=== PATIENT | female | born 1940 | race Caucasian/White ===

== ENCOUNTER → 2016-11-08 | Outpatient (CLI) | payer OTHER ==
[~2016-11-08] MED LIST: AMLO-110 PO; ASPEC81 PO; ATEN-173 PO; CHOL100010 PO; FRRG PO; HYDR-4079 PO; HYDROCHLOROTHIAZIDE PO; LEVOTHYROXINE PO; LISI40TA PO; ONDA4TAB46 PO; SPIRONOLACTONE PO; STLS PO
--- NOTE | 2016-11-08 14:55 | DIAGNOSTIC IMAGING REPORT ---
LEFT SHOULDER 3 VIEWS CLINICAL HISTORY: Left shoulder pain. FINDINGS: 3 views of left shoulder are obtained. No prior studies are available for comparison at the time of dictation. The skeletal structures are osteopenic. No fracture or dislocation is identified. Productive degenerative change is seen at the acromioclavicular joint. The glenohumeral articulation is preserved. The overlying soft tissues are within normal limits. Partially imaged left lung parenchyma appears clear. IMPRESSION: Osteopenia and mild degenerative change as above. No acute bony abnormality is identified. Electronically signed by: Kyrie Monique M.D. 11/08/2016 2:53 PM Dictated Date/Time: 11/08/2016 2:52 PM
--- NOTE | 2016-11-08 14:55 | DIAGNOSTIC IMAGING REPORT ---
CERVICAL SPINE 4 OR 5 VIEWS CLINICAL HISTORY: Left shoulder pain COMPARISON STUDY: No previous studies for comparison. FINDINGS: The prevertebral soft tissues are normal. No fractures or subluxations are visualized. There are minor multilevel degenerative changes. No destructive lesions are visualized. IMPRESSION: Minor multilevel degenerative change. No fractures or subluxations identified. Electronically signed by: Benny Gale M.D. 11/08/2016 2:54 PM Dictated Date/Time: 11/08/2016 2:53 PM
== END | disposition home or self-care (01) ==
LOC: C.RDSM 13:10
PROVIDERS: ATTEND Internal Medicine
DX: M25.512 Pain in left shoulder (principal); M85.80 Other specified disorders of bone density and structure, unspecified site

== ENCOUNTER → 2017-01-28 | Outpatient (CLI) | payer OTHER | END | disposition home or self-care (01) | LOC: C.RDSM 15:10 | PROVIDERS: ATTEND Physical Medicine & Rehabilitation Sports Medicine | DX: M25.561 Pain in right knee (principal) ==

== ENCOUNTER 2018-12-16 05:00 | Inpatient (IN) ==
--- NOTE | 2018-11-25 10:01 | PAT Medication Instructions ---
Medication Instructions Date of Service November 25, 2018 Home Medications apple cider vinegar 1 dose PO DAILY ascorbic acid (vitamin C) 1 g PO DAILY cholecalciferol (vitamin D3) 1,000 unit PO DAILY gabapentin 800 mg PO BID levothyroxine 125 mcg PO QA lisinopril 20 mg PO QAM loratadine 10 mg PO QPM metoprolol tartrate 25 mg PO BID naproxen sodium [Aleve] 2 tab PO BID NEEDED phentermine 15 mg PO QAM ranitidine HCl 150 mg PO HS NEEDED spironolacton-hydrochlorothiaz 1 tab PO QPM topiramate 25 mg PO QPM ASK your surgeon for instructions naproxen sodium [Aleve] 2 tab PO BID NEEDED STOP taking 2 weeks before surgery phentermine 15 mg PO QAM (STOP TAKING 1 WEEK BEFORE SURGERY) DO NOT take the morning of surgery apple cider vinegar 1 dose PO DAILY ascorbic acid (vitamin C) 1 g PO DAILY cholecalciferol (vitamin D3) 1,000 unit PO DAILY lisinopril 20 mg PO QAM Take morning of surgery With a small sip of water, OTHERWISE NOTHING TO EAT OR DRINK AFTER MIDNIGHT: gabapentin 800 mg PO BID levothyroxine 125 mcg PO QA metoprolol tartrate 25 mg PO BID Take evening before surgery gabapentin 800 mg PO BID loratadine 10 mg PO QPM metoprolol tartrate 25 mg PO BID ranitidine HCl 150 mg PO HS NEEDED spironolacton-hydrochlorothiaz 1 tab PO QPM topiramate 25 mg PO QPM Other Notes If you have any questions please call us at [phone] or [phone] or [phone] or [phone]
--- NOTE | 2018-11-25 11:17 | Anesthesiology Consultation ---
Date of Service November 25, 2018 Assessment & Plan (1) Encounter for pre-operative examination: Chart Review Chart Review: Acceptable Risk for Surgery and Patient seen in Pre Admission Testing Consults Requested medical (Dr. Sierra (12/05)) Patient was seen by PCP on 12/05. Per PCP note, patient is "All clear for surgery". Teaching & Discussion Pre-Anesthesia Teaching/Discussion Notes: Instructed NPO after midnight before surgery, except medications with 15 cc of water. Medication instructions provided according to the PAT guidelines. History Surgery Operation Date: 12/16/18 07:00 Proposed Procedures p Right Total Knee Arthroplasty - Brando Chu MD Height/Weight Height: 5 ft 5 in Weight: 101.3 kg Allergies Allergy/AdvReac Type Severity Reaction Status Date / Time hylan G-F 20 [From Synvisc] Allergy Verified 11/19/18 13:35 morphine AdvReac SEVERE Verified 11/19/18 13:36 VOMITING FOR SEVERAL DAYS Medications Home Medications Medication Instructions Recorded Confirmed Last Taken apple cider vinegar 1 dose PO DAILY 09/26/18 11/19/18 Unknown cholecalciferol (vitamin D3) 1,000 unit PO DAILY 09/26/18 11/19/18 Unknown [Vitamin D3] gabapentin 800 mg PO HS 09/26/18 12/08/18 Unknown levothyroxine 125 mcg PO QAM 09/26/18 11/19/18 Unknown lisinopril 20 mg PO QAM 09/26/18 11/19/18 Unknown loratadine 10 mg PO QPM 09/26/18 11/19/18 Unknown metoprolol tartrate 25 mg PO BID 09/26/18 11/19/18 Unknown phentermine 15 mg PO QAM 09/26/18 11/19/18 Unknown ranitidine HCl 150 mg PO HS PRN 09/26/18 11/19/18 Unknown topiramate 25 mg PO QPM 09/26/18 11/19/18 Unknown ascorbic acid (vitamin C) 500 mg PO DAILY 12/08/18 12/08/18 Unknown furosemide 20 mg PO DAILY PRN 12/08/18 12/08/18 Unknown hydrochlorothiazide 25 mg PO DAILY 12/08/18 12/08/18 Unknown spironolactone 25 mg PO DAILY 12/08/18 12/08/18 Unknown Past Medical History Medical History Benign paroxysmal positional vertigo Chronic back pain Heart murmur Hypertension Hypothyroidism Obesity Osteoarthritis Pernicious anemia Polymyalgia rheumatica Sciatic neuropathy Thyroid nodule Past Surgical History Surgical History History of breast biopsy History of cataract surgery Bilateral History of colonoscopy History of tonsillectomy History of total knee replacement LT Past Anesthesia History No Hx of Anesthesia Complications and No Family Hx of Anesthesia Complications History of PONV No (ONLY WHEN ON MORPHINE DRIP) Motion Sickness Screening History of Motion Sickness: No Social History Smoking Status: Former smoker tobacco type: cigarettes Smoking cigarettes per day: QUIT 30 YEARS AGO. SMOKED X 10 YEARS. Do You Dip or Chew Tobacco: No Hx Alcohol Use: No Alcohol Intake Frequency Comment: 0 Hx Substance Use: No substance use type: does not use Exercise / Class Metabolic Activity II 4-5 Yardwork/Stairs/Walk up hill (ABLE TO CLIMB FOS. DENIES CP OR SOB. ) Review of Systems Patient denies chest pain, shortness of breath, dyspnea on exertion, cough, wheezing, palpitations. +joint pain (knee) +acid reflux (mostly controlled by her medications) Physical Exam Vital Signs BP: 144/82 P: 60 R: 16 T: 97.0 SPO2: 97% on RA Constitutional + obese ENMT Thyromental Distance: > or= 3.5 Finger Breadths (3.5) Mallampati Class: II Neck normal visual inspection and trachea midline; neck extension not limited Respiratory normal respiratory effort Auscultation: lungs clear to auscultation bilaterally Cardiovascular Rate/Rhythm: regular rate and regular rhythm Heart Sounds: no murmur Vessels: no carotid bruit Neurologic moves all extremities Psychiatric Orientation: alert and oriented x 3 Testing Electrocardiogram Date: 11/25/18 Findings: + NSR @ (61) and + no change from (08/30/10) Chest X-Ray Date: 11/25/18 FINDINGS: The heart is at the upper limits of normal in size. There is a hazy opacity at the left lung base. Although nonspecific, the findings favor a summation with a cardiophrenic angle fat pad. Right paramediastinal soft tissues are the upper limits of normal in thickness. There is no lobar consolidation. There is no failure. There are no pleural effusions. Degenerative changes are present within the dorsal spine. IMPRESSION: 1. Nonspecific left basilar opacity, statistically representing a summation with a prominent cardiophrenic angle fat pad 2. No evidence of lobar consolidation. No evidence of failure. Laboratory Results 11/25/18 10:53 11/25/18 10:53 Blood Type O Positive 11/25/18 10:53 Antibody Screen NEGATIVE 11/25/18 10:53 PT 10.2 Seconds (9.0-12.0) 11/25/18 10:53 INR 1.0 (0.9-1.1) 11/25/18 10:53 APTT 26.3 Seconds (21.0-31.0) 11/25/18 10:53 Dr. Chu's office notified of elevated WBC count. CBC was repeated by PCP on 12/02/18 and WBC was 8.76
[2018-11-25 11:49] LABS: Basophils # (auto) 0.03 K/uL (0-0.2); Basophils % (auto) 0.2 %; Eosinophils % (auto) 0.6 %; Hematocrit (blood only) 38.1 % (37-47); Hemoglobin 12.5 g/dL (12.0-16.0); Immature Granulocytes # (auto) 0.05 K/uL (0.00-0.02); Immature Granulocytes % (auto) 0.3 %; Lymphocytes # (auto) 2.39 K/uL (1.2-3.4); Lymphocytes % (auto) 15.4 %; Mean Corpuscular Hgb Conc 32.8 g/dL (32-36); Mean Corpuscular Volume 89.9 fL (80-100); Mean Platelet Volume 9.8 fL (7.4-10.4); Monocytes # (auto) 0.82 K/uL (0.11-0.59); Monocytes % (auto) 5.3 %; Neutrophils # (auto) 12.17 K/uL (1.4-6.5); Neutrophils % (auto) 78.2 %; Platelet Count 358 K/uL (130-400); RDW Coefficient of Variation 12.6 % (11.5-14.5); RDW Standard Deviation 41.2 fL (36.4-46.3); Red Blood Count 4.24 M/uL (4.2-5.4); White Blood Count 15.56 K/uL (4.8-10.8)
[2018-11-25 11:57] LABS: BUN Creatinine Ratio 22.5 (10-20); Calcium 8.7 mg/dl (8.5-10.1); Creatinine Clr Calc Pharmacy 44.1 ml/min; Est GFR (African American) 47.6; Est GFR (Non-African American) 41.1
[2018-11-25 12:06] LABS: Partial Thromboplastin Time 26.3 Seconds (21.0-31.0); Prothrombin Time 10.2 Seconds (9.0-12.0)
--- NOTE | 2018-11-25 12:06 | XRay Report ---
XR chest Pre-admission PA/Lat CLINICAL HISTORY: Preoperative chest COMPARISON STUDY: No previous studies for comparison. FINDINGS: The heart is at the upper limits of normal in size. There is a hazy opacity at the left jayy g base. Although nonspecific, the findings favor a summation with a cardiophrenic angle fat pad. Righ t paramediastinal soft tissues are the upper limits of normal in thickness. There is no lobar consoli dation. There is no failure. There are no pleural effusions. Degenerative changes are present within the dorsal spine.[ IMPRESSION: 1. Nonspecific left basilar opacity, statistically representing a summation with a prominent cardioph renic angle fat pad 2. No evidence of lobar consolidation. No evidence of failure. Electronically signed by: Benny Gale M.D. 11/25/2018 12:05 PM
--- NOTE | 2018-12-08 13:50 | History & Physical Report ---
Date of Service December 08, 2018 Assessment & Plan (1) Degenerative joint disease of knee, right: Patient is scheduled for an elective right total knee arthroplasty on December 16, [address] Brando Chu. Risks and complications of the procedure were extended the patient and include but are not limited to infection, pain, bleeding, scarring, nerve or blood vessel damage, wound problems, weakness, stiffness, incomplete relief of symptoms, hardware failure, loosening, wear, fracture, blood clots, embolisms, heart attack, stroke and . All questions were answered and informed consent was obtained. She will have preadmission testing which she will obtain a preoperative CBC, BMP, PT/INR, PTT, type and screen, EKG and chest x-ray. She will have preoperative medical clearance by her family physician Dr. Sierra. Postoperative course was discussed. The joint class was discussed in times are provided to her to do that. She was instructed on the usage of the CHG cloths prior to surgery. She is planning on being discharged to her home after surgery with in-home physical therapy and then attending outpatient physical therapy closer to her home. She was given a prescription for a walker for postoperative use. She was instructed and reminded about dental prophylaxis which she already does due to her left total knee arthroplasty. We will use Lovenox 30 mg twice a day 2 weeks postoperatively for DVT prophylaxis. All questions were answered and she knows to call with any further problems, questions or concerns. Present on Admission?: Yes History of Present Illness Chief Complaint: Right knee pain Primary Care Provider: Dr. Carmelo Sierra Patient is a 78-year-old female who is scheduled to have an elective right total knee arthroplasty on December 16, [address] Brando Chu. Her surgery will be performed at the [facility].She is having right knee pain that has progressively worsened over the last couple of months. She has been having issues with her right knee for the past few years. Most of her pain is on the medial aspect of the knee although she also gets pain in the back of her knee. She has significant stiffness after sitting and sometimes pain that radiates down into her ankle especially with driving. She has pain in the knee at night and also her pain is increased with walking. She is decreasing activities of daily living due to pain in her right knee. Aggravating activities include walking, going up and down steps. She occasionally also has pain at rest. Prior treatments include nonsteroidal anti-inflammatory medications, corticosteroid injections and viscose supplementation. She does use a cane to assist with ambulation to prevent from falling. She does have a history of having a successful left total knee arthroplasty and would like to proceed with a right total knee arthroplasty. Allergies Allergy/AdvReac Type Severity Reaction Status Date / Time kaylin Powell-Liam 20 [From Bill.Forward] Allergy Verified 11/19/18 13:35 morphine AdvReac SEVERE Verified 11/19/18 13:36 VOMITING FOR SEVERAL DAYS Home Medications Home Medications Medication Instructions Recorded Confirmed Type apple cider vinegar 1 dose PO DAILY 09/26/18 11/19/18 History cholecalciferol (vitamin D3) 1,000 unit PO DAILY 09/26/18 11/19/18 History [Vitamin D3] gabapentin 800 mg PO HS 09/26/18 12/08/18 History levothyroxine 125 mcg PO QAM 09/26/18 11/19/18 History lisinopril 20 mg PO QAM 09/26/18 11/19/18 History loratadine 10 mg PO QPM 09/26/18 11/19/18 History metoprolol tartrate 25 mg PO BID 09/26/18 11/19/18 History phentermine 15 mg PO QAM 09/26/18 11/19/18 History ranitidine HCl 150 mg PO HS PRN 09/26/18 11/19/18 History topiramate 25 mg PO QPM 09/26/18 11/19/18 History ascorbic acid (vitamin C) 500 mg PO DAILY 12/08/18 12/08/18 History furosemide 20 mg PO DAILY PRN 12/08/18 12/08/18 History hydrochlorothiazide 25 mg PO DAILY 12/08/18 12/08/18 History spironolactone 25 mg PO DAILY 12/08/18 12/08/18 History Past Med/Surg History Medical History Benign paroxysmal positional vertigo Chronic back pain Heart murmur Hypertension Hypothyroidism Obesity Osteoarthritis Pernicious anemia Polymyalgia rheumatica Sciatic neuropathy Thyroid nodule Surgical History History of breast biopsy History of cataract surgery Bilateral History of colonoscopy History of tonsillectomy History of total knee replacement LT Social History Preferred Language: Chinese Communication Ability: Effective Member Service Representative Required: No Beliefs That Will Affect Care: None Current Living Situation: Other Current Living Situation Comment: RESIDES WITH A FRIEND Other Information That Helps Us Care for You: No Feels Safe at Home: Yes Safety Concerns: Feels Safe At This Time Smoking Status: Former smoker Hx Alcohol Use: No Hx Substance Use: No Review of Systems Constitutional: + weight loss; no fever, no chills and no sweats Eyes: no diplopia, no dry eyes and no eye pain Ear, Nose, Mouth, Throat: no ear pain, no tinnitus, no hearing loss, no post nasal drip, no sinus pain/pressure, no snoring, no dental caries, no dental abscess, no loose teeth and no TMJ pain Respiratory: + dyspnea on exertion; no cough, no chest congestion, no dyspnea and no wheezing Cardiovascular: no chest pain, no chest pain at rest, no chest pain with activity, no dyspnea at rest, no palpitations, no lightheadedness, no syncope, no edema and no calf pain Gastrointestinal: no abdominal pain, no belching, no heartburn, no nausea, no vomiting, no constipation and no diarrhea/loose stools Genitourinary (Female): no dysuria, no urinary frequency, no urinary hesitancy, no urinary urgency, no urinary incontinence and no hematuria Musculoskeletal: + back pain, + radicular pain, + joint pain, + swelling, + stiffness and + limited range of motion; no deformity Integumentary: no rash, no sores, no wounds and no dry skin Neurologic: no gait abnormality, no unsteadiness, no seizure-like activity, no dizziness and no headache(s) Psychiatric: no behavioral changes, no depression and no anxiety Hematologic / Lymphatic: no easy bleeding, no easy bruising and no coagulopathy Allergy / Immunological: no GI upset with certain foods, no seasonal rhinorrhea, no dyspnea and no rash Physical Exam Vital Signs (Past 24 Hours): Height: 5 feet 5 inches Weight: 220 pounds Constitutional: WD/WN, vitals as above well developed and + obese; no acute distress Eyes: PERRL, conjunctivae normal, anicteric sclerae EOM intact bilaterally ENMT: external ear and nose normal, oropharynx normal Ears: no hearing impairment Nose: no external nose abnormality Mouth: no dentition abnormality Throat: uvula midline Neck: trachea midline, no thyromegaly normal visual inspection; no neck crepitus Respiratory: normal respiratory effort, lungs clear to auscultation Auscultation: no crackles, no rales, no rhonchi and no wheezes Cardiovascular: Rate/Rhythm: regular rate and regular rhythm Heart Sounds: + murmur Vessels: femoral pulses present and posterior tibial pulses present; no carotid bruit Extremities: normal capillary refill; no calf tenderness and no pedal edema Chest (Breasts): Chest: normal inspection of chest Gastrointestinal (Abdomen): normal bowel sounds, soft, nontender, no hepatosplenomegaly Inspection/Auscultation: abdomen not distended Musculoskeletal: Head/Neck/Chest: normocephalic, head atraumatic and neck supple; full ROM of neck Extremities: strength 5/5 throughout; no muscle atrophy Gait: normal gait (With assistive device) Review of motion right knee 0/10/120 with varus alignment, passive straight leg raise negative, painless movement of her right hip, tenderness with palpation of the medial and posterior medial joint line which reproduces her symptoms. No effusion. Ligamentous exam is stable. Skin: no rashes, warm and dry normal turgor Neurologic: moves all extremities Speech / Cognition: normal speech Psychiatric: A+Ox3, euthymic affect Judgement: good judgement Results & Data Laboratory Results Lab Results 11/25/18 11/25/18 11/25/18 Range/Units 10:53 10:53 10:53 WBC 15.56 H (4.8-10.8) K/uL RBC 4.24 (4.2-5.4) M/uL Hgb 12.5 (12.0-16.0) g/dL Hct 38.1 (37-47) % MCV 89.9 (80-100) fL MCH 29.5 (25-34) pg MCHC 32.8 (32-36) g/dL RDW Std Deviation 41.2 (36.4-46.3) fL RDW Coeff of Albert 12.6 (11.5-14.5) % Plt Count 358 (130-400) K/uL MPV 9.8 (7.4-10.4) fL Immature Gran % (Auto) 0.3 % Neut % (Auto) 78.2 % Lymph % (Auto) 15.4 % [place] % (Auto) 5.3 % Eos % (Auto) 0.6 % Baso % (Auto) 0.2 % Immature Gran # (Auto) 0.05 H (0.00-0.02) K/uL Neut # (Auto) 12.17 H (1.4-6.5) K/uL Lymph # (Auto) 2.39 (1.2-3.4) K/uL [place] # (Auto) 0.82 H (0.11-0.59) K/uL Eos # (Auto) 0.10 (0-0.5) K/uL Baso # (Auto) 0.03 (0-0.2) K/uL PT 10.2 (9.0-12.0) Seconds INR 1.0 (0.9-1.1) APTT 26.3 (21.0-31.0) Seconds PTT Ratio 1.0 Sodium 140 (136-145) mmol/L Potassium 4.0 (3.5-5.1) mmol/L Chloride 106 (98-107) mmol/L Carbon Dioxide 28 (21-32) mmol/L Anion Gap 6.0 (3-11) BUN 28 H (7-18) mg/dl Creatinine 1.26 H (0.6-1.2) mg/dl Est Cr Clr Drug Dosing 44.1 ml/min Est GFR ( Amer) 47.6 Est GFR (Non-Af Amer) 41.1 BUN/Creatinine Ratio 22.5 H (10-20) Glucose 96 (70-99) mg/dl Calcium 8.7 (8.5-10.1) mg/dl Blood Type Antibody Screen 11/25/18 Range/Units 10:53 WBC (4.8-10.8) K/uL RBC (4.2-5.4) M/uL Hgb (12.0-16.0) g/dL Hct (37-47) % MCV (80-100) fL MCH (25-34) pg MCHC (32-36) g/dL RDW Std Deviation (36.4-46.3) fL RDW Coeff of Albert (11.5-14.5) % Plt Count (130-400) K/uL MPV (7.4-10.4) fL Immature Gran % (Auto) % Neut % (Auto) % Lymph % (Auto) % [place] % (Auto) % Eos % (Auto) % Baso % (Auto) % Immature Gran # (Auto) (0.00-0.02) K/uL Neut # (Auto) (1.4-6.5) K/uL Lymph # (Auto) (1.2-3.4) K/uL [place] # (Auto) (0.11-0.59) K/uL Eos # (Auto) (0-0.5) K/uL Baso # (Auto) (0-0.2) K/uL PT (9.0-12.0) Seconds INR (0.9-1.1) APTT (21.0-31.0) Seconds PTT Ratio Sodium (136-145) mmol/L Potassium (3.5-5.1) mmol/L Chloride (98-107) mmol/L Carbon Dioxide (21-32) mmol/L Anion Gap (3-11) BUN (7-18) mg/dl Creatinine (0.6-1.2) mg/dl Est Cr Clr Drug Dosing ml/min Est GFR ( Amer) Est GFR (Non-Af Amer) BUN/Creatinine Ratio (10-20) Glucose (70-99) mg/dl Calcium (8.5-10.1) mg/dl Blood Type O Positive Antibody Screen NEGATIVE Diagnostic Findings X-rays , 4 views bilateral knees: Show a left total knee arthroplasty with no evidence of loosening or wear of her left knee. It is in good position. No fracture., X-rays of her right knee show medial compartment arthritis near [id number] with varus deformity. There are osteophytes noted throughout the knee.
[2018-12-16] MEDS ORDERED: cloNIDine HCL 0.1 MG/24 HR TRANSDERM SYS TD SCH (06:00)
[2018-12-16] MEDS ORDERED: ACETAMINOPHEN 500 MG TAB PO SCH (06:00)
[2018-12-16] MEDS ORDERED: TRANEXAMIC ACID 1,000 MG **IV Pre-op IV SCH (06:00)
[2018-12-16] MEDS ORDERED: CeleBREX 200 MG CAP PO SCH (06:00)
[2018-12-16] MEDS ORDERED: ROPIVACAINE 0.5% HCL/PF 150 MG, BUPIVACAINE 0.5% MPF 30 ML, EPINEPHrine 0.15 MG, Ketoro... INFIL SCH (06:00)
[2018-12-16] MEDS ORDERED: OXYCODONE HCL 10 MG TABCR (OXYCONTIN) PO SCH (06:00)
[2018-12-16] MEDS ORDERED: LR 500ML BOLUS, THEN 15ML/HR IV SCH (06:00)
[2018-12-16] MEDS ORDERED: TRAMADOL HCL 50 MG TABLET PO SCH (06:00)
[2018-12-16] MEDS ORDERED: GABAPENTIN 300 MG PO SCH (06:00)
[2018-12-16] MEDS ORDERED: METOCLOPRAMIDE HCL 10 MG TABLET PO SCH (06:00)
[2018-12-16] MEDS ORDERED: CEFAZOLIN 2000MG 2,000 MG/15 ML SYR IV SCH (06:00)
[2018-12-16] MEDS ORDERED: LR 60ML/HR IV SCH (06:00)
[2018-12-16] MEDS ORDERED: FAMOTIDINE 20 MG TAB PO SCH (06:00)
[2018-12-16] MEDS ORDERED: dexAMETHasone 4 MG TAB PO SCH (06:00)
[2018-12-16] MEDS ORDERED: BUPIVACAINE/EPINEPHRINE 0.5% MPF 1:200,000 30 ML VIAL ONE (06:30)
[2018-12-16] MEDS ORDERED: TRANEXAMIC ACID 1,000 MG **IV Intra-op IV SCH (06:30)
[2018-12-16] MEDS ORDERED: DEXAMETHASONE SOD INJ 4 MG/ML VIAL ONE (06:30)
[2018-12-16] MEDS ORDERED: BUPIVACAINE 0.5 % 5 MG/1 ML PF 10ML VIAL ONE (06:33)
--- NOTE | 2018-12-16 06:39 | History & Physical Bridge Note ---
Date of Service December 16, 2018 History & Physical Bridge Note I have examined the patient, reviewed the History & Physical and in the interval since the performance of the History & Physical I have noted the following changes of clinical significance: no changes noted
[2018-12-16] MEDS ORDERED: MIDAZOLAM HCL 1 MG/ML 2ML VIAL ONE ×2 (06:40→07:45)
[2018-12-16] MEDS ORDERED: fentaNYL citrate 100 MCG/2 ML VIAL ONE ×2 (06:40→09:10)
[2018-12-16] MEDS ORDERED: ORTHO JOINT ANESTHETIC ONE (06:40)
[2018-12-16] MEDS ORDERED: PROPOFOL IV EMULSION 10 MG/ML 20 ML VIAL IV ONE ×2 (06:40→08:27)
[2018-12-16] MEDS ORDERED: POVIDONE-IODINE OP SOLN 30 ML BTL ONE (06:40)
[2018-12-16] MEDS ORDERED: SODIUM CHLORIDE 0.9% PF 50 ML VIAL ONE (06:41)
[2018-12-16] MEDS ORDERED: BACITRACIN INJ 50,000 UNIT VIAL ONE (06:41)
[2018-12-16] MEDS ORDERED: fentaNYL citrate 100 MCG/2 ML VIAL IV PRN (07:13)
[2018-12-16] MEDS ORDERED: ONDANSETRON INJ 2 MG/ML 2 ML VIAL IV PRN ×2 (07:13→11:07)
[2018-12-16] MEDS ORDERED: ePHEDrine sulfate 50 MG/ML AMP IV PRN (07:13)
[2018-12-16] MEDS ORDERED: PROMETHAZINE HCL 6.25 MG in SODIUM CHLORIDE 0.9% 50 ML IV PRN (07:13)
[2018-12-16] MEDS ORDERED: ATROPINE SULFATE 0.1 MG/ML 10ML SYR IV PRN (07:13)
[2018-12-16] MEDS ORDERED: ONDANSETRON INJ 2 MG/ML 2 ML VIAL ONE (07:18)
--- NOTE | 2018-12-16 09:53 | Post Operative Brief Note ---
Immediate Post Op Note v1 Date of Surgery December 16, 2018 Pre & Post Diagnosis Operation Date: 12/16/18 07:00 Pre-Op Diagnosis: Right Knee Osteoarthritis Post-Op Diagnosis: Right Knee Osteoarthritis Procedure Operation Date: 12/16/18 07:00 Actual Procedures p Right Total Knee Arthroplasty(Right) - Brando Chu MD Surgeon Brando Chu MD Interventional Pain Physician maya Estimated Blood Loss 5 Findings Consistent with Post-Op Diagnosis Anesthesia Type MAC Spinal Regional Complications none Disposition Accompanied Patient To Recovery: No Disposition: Recovery Room
--- NOTE | 2018-12-16 09:56 | Operative Report ---
Post Operative Report Pre & Post Diagnosis Operation Date: 12/16/18 07:00 Pre-Op Diagnosis: Right Knee Osteoarthritis Post-Op Diagnosis: Right Knee Osteoarthritis Procedure Operation Date: 12/16/18 07:00 Actual Procedures p Right Total Knee Arthroplasty(Right) - Brando Chu MD Surgeon Enoc Garcia. Mechanic'S Assistant maya SCHULZ Estimated Blood Loss 5 Findings Consistent with Post-Op Diagnosis Specimens Bone and soft tissue Anesthesia Type Spinal MAC Complications none Disposition Accompanied Patient To Recovery: No Disposition: Recovery Room Description of Procedure Patient was placed under spinal anesthesia and given peripheral nerve block. Timeout was performed. She was given 2 g of IV Ancef for surgical prophylaxis. She was prepped and draped in routine sterile fashion. I was present during the entire case, please see Dr. Chu's operative report for further detail. Patient was awakened and transferred to the recovery room in stable condition. I attest to the content of the Intraoperative Record and any orders documented therein. Any exceptions are noted below.
--- NOTE | 2018-12-16 10:18 | Anesthesiology Progress Note ---
Date of Service December 16, 2018 Anesthesia Post Procedure Vital Signs Vital Signs: Temp Pulse Pulse Resp BP Pulse Ox 12/16/18 10:05 61 16 95/62 L 96 12/16/18 09:56 36.5 C 59 L 17 109/57 L 98 12/16/18 05:39 36.6 C 63 20 155/88 H 96 Notes Mental Status: alert / awake / arousable Patient Amnestic to Procedure: Yes Nausea / Vomiting: adequately controlled Pain: adequately controlled Airway Patency, RR, SpO2: stable & adequate BP & HR: stable & adequate Hydration State: stable & adequate Neuraxial Anesthesia: was administered and sensory block is resolving Anesthetic Complications: no major complications apparent
--- NOTE | 2018-12-16 10:28 | Operative Report ---
Post Operative Report Pre & Post Diagnosis Operation Date: 12/16/18 07:00 Pre-Op Diagnosis: Right Knee Osteoarthritis Post-Op Diagnosis: Right Knee Osteoarthritis Procedure Operation Date: 12/16/18 07:00 Actual Procedures p Right Total Knee Arthroplasty(Right) - Brando Chu MD Surgeon Brando Chu MD Machine Setter Automatic maya SCHULZ Estimated Blood Loss 5 Findings Consistent with Post-Op Diagnosis Specimens Bone and soft tissue Drains None Anesthesia Type MAC Spinal Regional Complications none Disposition Accompanied Patient To Recovery: No Indications Patient is a 78-year-old female with end-stage arthritis of her right knee. Diminished response to conservative treatment. Pain interferes with ADLs. She is status post successful contralateral knee replacement. Description of Procedure Informed consent obtained. Patient identified. Preop surgical timeout performed. Preop dose of IV antibiotics given. Examination showed range 0/7/120 with no significant varus laxity and 1+ LCL laxity in mid position. The leg was prepped and draped in the usual sterile fashion. DVT prophylaxis with foot pumps and postoperatively with Lovenox. A bump was placed under the right hip and a tourniquet on the right thigh. She identified the operative site as the right knee which I marked with my initials. I identified the patient. The limb was exsanguinated with the Esmarch. Tourniquet inflated to 250 mmHg. A midline longitudinal incision was made of about 15-20 cm in length. This was followed by medial parapatellar arthrotomy. The retropatellar fat pad and soft tissue on the anterior aspect of the distal femur were removed. The synovial reflection in the lateral gutter was released. An extensile medial subperiosteal release was performed. The patella had some grade 2 chondrosis on it with some marginal osteophytes which were debrided. The lateral compartment looked normal. The medial compartment had large areas of the weightbearing surface on both sides of the joint with out cartilage and significant eburnation with large bone spurs. Osteophytes debrided. Cruciate ligaments resected and the meniscal remnants were resected. The medial meniscus was substantially deficient. She had significant offset of her proximal tibia in the sagittal plane and had increased posterior tibial slope. Additionally it was noted that she had softening of her bone which resulted in some indentation of the bone laterally from retractors. This was a few millimeters deep and 1/2 cm wide and long. It was able to be covered up as necessary with cement and had excellent support from the surrounding bone. A filler shredder hole was drilled into the proximal tibia just in front of the lateral tibial spine. Intramedullary alignment patricia was inserted and the tibial guide was applied and adjusted x1. This was set over the tibial tubercle. 0 degree cutting block. Set to take 10 mm off the high side corresponding to 2 mm off the low side. The patellar tendon was protected and the cut was made. This was sized to a 3 or 4. A filler shredder hole was drilled into the distal femur just above the PCL and the intramedullary alignment guide was inserted. This was set to resect 14 mm off of the distal femur at a 6 degree valgus angle based upon preoperative exam and templating. I confirmed that the collateral ligaments were protected after pin cecilia the guide in place and then the cut was made. The epicondylar axis was marked out. The distal femoral sizing block was applied and sized to a 4. The external rotation drill holes were made and the size 4 anterior down cutting block was applied. The collateral ligaments were protected and this cut was made. The box cutting guide was applied and lateralized and that cut was made. Osteophytes in the back the knee particularly laterally were removed. The box was finished with rongeur and rasp. The size of 4 femur was applied and fitted well. The tibia was exposed. The size 4 tray fit well however in order to fit it was internally rotated from the true anterior angle by 20 degrees or so. I therefore downsized to the 3 which gave better rotational alignment. This was pinned in the place and lateralized. The keel was drilled and punched. Trialing was then performed and showed full extension trace MCL and 1+ LCL laxity in mid position and no laxity at 90 degrees. Previous to this the flexion and extension gaps were sized to a 10 mm width and were symmetric. The patella was sized to a 38 mm. The thickness measured 23 mm. The guide was set to preserve 14 mm of bone. The cut was made and the patella paddle was applied aligned with the knee in slight flexion and the drill holes were made for the lugs. Patellar tracking was fine with a no hands technique. The trial components were removed. The canals were plugged. Orth O joint mix injected into the back of the knee and a pulsatile lavage was used to prepare the bony surfaces which were then dried. 2 bags of Simplex P cement were mixed and while in a doughy state the components were cemented into place femur tibia and patella. A trial spacer was applied and the knee was held in full extension until the cement hardened. Smears of cement were applied over the posterior condyles of the femur. Extraneous cement was removed after the cement had hardened. The tourniquet was let down after 95 minutes of inflation. There was minimal bleeding present which was controlled with electrocautery. The aforementioned stability pattern applied and a larger polyethylene insert would not be possible to insert. Trialing was performed assessing patellar tracking which was fine stability and full extension and at 90 degrees which was nail in mid position 1+ LCL trace MCL. The final 10 mm thick polyethylene insert was applied. The back of the knee was inspected for cement. Composite patellar thickness was 24 mm. [place] assisted flexion with the extensor mechanism closed was 110-115 degrees. Copious pulsatile lavage was performed after doing a Betadine lavage soak. The remainder of the Orth O joint mix was inserted after cementation. The extensor mechanism was closed above the equator the patella with interrupted #2 FiberWire. Below the equator of the patella with interrupted #1 running Vicryl. The skin was closed in layers with 0 and 2-0 Vicryl followed by hudson. A soft sterile dressing was applied after cleaning the leg. A full- length Farzad wrap and knee immobilizer. Patient is awake from anesthesia without difficulty and taken to the recovery room in stable condition. There were no complications. Counts were correct. Blood loss was 5 cc. At the conclusion operation spoke patient's friend informed of my findings and give detailed postoperative instructions. The resected bone and soft tissue were sent for specimen. She will be admitted to the hospital. [facility] for DVT prophylaxis beginning no sooner than 12 hours postop. She will receive PT and OT per protocol. Components inserted with a J&J PFC Sigma rotating platform knee size 4 right posterior stabilized femur size 3 mobile bearing keeled tibial tray and a size 38 3 peg oval dome patella. A size 4 matching the femur posterior stabilized rotating platform 10 mm thick polyethylene insert I attest to the content of the Intraoperative Record and any orders documented therein. Any exceptions are noted below.
--- NOTE | 2018-12-16 10:33 | XRay Report ---
XR knee RT 2V routine CLINICAL HISTORY: Surgical Post Op COMPARISON: None. DISCUSSION: Anatomic alignment post total right knee arthroplasty. Expected soft tissue postoperative change IMPRESSION: Anatomic alignment post total right knee arthroplasty. The above report was generated using voice recognition software. It may contain grammatical, syntax or spelling errors. Electronically signed by: Albert Appiah M.D. 12/16/2018 10:32 AM
[2018-12-16] MEDS ORDERED: HYDROmorphone INJ 0.5 MG/0.5 ML SYR IV PRN (11:07)
[2018-12-16] MEDS ORDERED: TRAMADOL HCL 50 MG TABLET PO PRN (11:07)
[2018-12-16] MEDS ORDERED: MAGNESIUM HYDROXIDE SUSP 30 ML UDC PO PRN (11:07)
[2018-12-16] MEDS ORDERED: FUROSEMIDE 20 MG TAB PO PRN (11:07)
[2018-12-16] MEDS ORDERED: BISACODYL 10 MG SUPP PR PRN (11:07)
[2018-12-16] MEDS ORDERED: METOCLOPRAMIDE HCL INJ 5 MG/ML 2 ML VIAL IV PRN (11:07)
[2018-12-16] MEDS ORDERED: NALOXONE HCL 0.4 MG/1 ML VIAL/CARP IV PRN (11:07)
[2018-12-16] MEDS: CHECK CLONIDINE PATCH PLACEMENT SCH ×3 (11:33→17:09)
[2018-12-16] MEDS: SODIUM CHLORIDE 0.9% 1000ML 1,000 ML IV SCH ×2 (13:12→22:18)
[2018-12-16] MEDS: ACETAMINOPHEN 500 MG TAB PO SCH ×2 (14:22→22:16)
--- NOTE | 2018-12-16 16:22 | Orthopedic Progress Note ---
Date of Service December 16, 2018 Assessment & Plan (1) Degenerative joint disease of knee, right: POD 0 - right total knee arthroplasty She may be OOB/WBAT RLE with walker and knee immobilizer PT/OT to start tomorrow Lovenox to start tonight for DVT prophylaxis. Case management for disposition - plans for home with home health/PT Dr. Chu present for today's visit Continue regular diet Pain medication as ordered Will re-eval in AM. All questions answered. post operative X-rays reviewed with patient. Present on Admission?: Yes Subjective Doing well, no complaints of pain, denies chest pain, shortness of breath, headache. Tolerated regular diet. states out of bed with walker and nurse to bedside commode. Family visiting. Physical Exam 2 Vital Signs (Past 24 Hours): Last Vital Signs Temp 36.5 C 12/16/18 15:30 Pulse 69 12/16/18 15:30 Resp 18 12/16/18 15:30 BP 115/67 12/16/18 15:30 Pulse Ox 93 12/16/18 15:30 Physical Exam: Dressings clean, dry, intact. Distal N/V intact, cap refill normal. distal pulses 1+ Results & Data Diagnostic Findings XR knee RT 2V routine CLINICAL HISTORY: Surgical Post Op COMPARISON: None. DISCUSSION: Anatomic alignment post total right knee arthroplasty. Expected soft tissue postoperative change IMPRESSION: Anatomic alignment post total right knee arthroplasty.
[2018-12-16] MEDS: CEFAZOLIN 2000MG 2,000 MG/15 ML SYR IV SCH ×2 (17:09→23:58)
[2018-12-16] MEDS ORDERED: GABAPENTIN 400 MG CAP PO SCH (21:00)
[2018-12-16] MEDS ORDERED: TOPIRAMATE 25 MG TAB PO SCH (21:00)
[2018-12-16] MEDS ORDERED: SENNA 8.6 MG TAB PO SCH (21:00)
[2018-12-16] MEDS ORDERED: LORATADINE 10 MG TAB PO SCH (21:00)
[2018-12-16] MEDS: OXYCODONE HCL IR 5 MG TAB (IMMEDIATE RELEASE) PO PRN (22:13)
[2018-12-16] MEDS: ENOXAPARIN INJ 30 MG/0.3 ML SYR SQ SCH (22:14)
[2018-12-16] MEDS: METOPROLOL TARTRATE 25 MG TAB PO SCH (22:16)
[2018-12-16] MEDS: CeleBREX 200 MG CAP PO SCH (22:17)
[2018-12-16] MEDS: DOCUSATE SODIUM 100 MG CAP PO SCH (22:18)
[2018-12-16] MEDS ORDERED: Nursing to Pharmacy Communication ONE (23:04)
[2018-12-17] MEDS: CHECK CLONIDINE PATCH PLACEMENT SCH ×2 (00:03→07:23)
[2018-12-17] MEDS: ACETAMINOPHEN 500 MG TAB PO SCH ×2 (05:59→13:46)
[2018-12-17] MEDS ORDERED: LEVOTHYROXINE SODIUM 125 MCG TABLET PO SCH (06:30)
[2018-12-17] MEDS: DOCUSATE SODIUM 100 MG CAP PO SCH (07:24)
[2018-12-17] MEDS: CeleBREX 200 MG CAP PO SCH (07:24)
[2018-12-17] MEDS: METOPROLOL TARTRATE 25 MG TAB PO SCH (07:25)
[2018-12-17] MEDS: ENOXAPARIN INJ 30 MG/0.3 ML SYR SQ SCH (07:25)
[2018-12-17] MEDS ORDERED: dexAMETHasone 4 MG TAB PO SCH (08:00)
[2018-12-17 08:45] LABS: Hematocrit (blood only) 31.4 % (37-47); Hemoglobin 10.4 g/dL (12.0-16.0); Mean Corpuscular Hgb Conc 33.1 g/dL (32-36); Mean Platelet Volume 9.4 fL (7.4-10.4); Platelet Count 325 K/uL (130-400); RDW Coefficient of Variation 12.8 % (11.5-14.5); RDW Standard Deviation 40.6 fL (36.4-46.3); Red Blood Count 3.53 M/uL (4.2-5.4); White Blood Count 16.17 K/uL (4.8-10.8)
[2018-12-17] MEDS ORDERED: CHOLECALCIFEROL 1,000 UNITS TAB PO SCH (09:00)
[2018-12-17] MEDS ORDERED: hydroCHLOROthiazide 25 MG TAB PO SCH (09:00)
[2018-12-17] MEDS ORDERED: MULTIVITAMIN TAB PO SCH (09:00)
[2018-12-17] MEDS ORDERED: LISINOPRIL 20 MG TAB PO SCH (09:00)
[2018-12-17] MEDS ORDERED: SPIRONOLACTONE 25 MG TAB PO SCH (09:00)
[2018-12-17] MEDS ORDERED: ASCORBIC ACID 500 MG TAB PO SCH (09:00)
[2018-12-17 09:24] LABS: BUN Creatinine Ratio 25.4 (10-20); Calcium 8.3 mg/dl (8.5-10.1); Creatinine Clr Calc Pharmacy 32.9 ml/min; Est GFR (African American) 33.9; Est GFR (Non-African American) 29.2; Potassium 4.8 mmol/L (3.5-5.1)
[2018-12-17] MEDS ORDERED: SODIUM CHLORIDE 0.9% 1000ML 1,000 ML IV ONE (09:48)
--- NOTE | 2018-12-17 10:30 | Orthopedic Progress Note ---
Date of Service December 17, 2018 Assessment & Plan (1) Degenerative joint disease of knee, right: POD 1- Right TKA PT/OT today WBAT RLE with assistance of walker, february D/C immobilizer Regular diet as ordered VSS - labs stable will recheck early next week Lovenox started for DVT prophylaxis, continue ELLE stockings. SS/Case management evaluted- setting up for home health Dr. Chu present for today's visit. Plan for discharge to home later today if safe in PT/OT and pain well controlled. All questions answered, follow up as scheduled, discharge instructions reviewed. Present on Admission?: Yes Subjective Patient doing well, no complaints of pain. has been out of bed, states that she feels she's doing well. Ambulating around room with walker. Would like to go home. Denies chest pain, shortness of breath, headaches. States that this time around is much better than the last. Physical Exam Vital Signs (Past 24 Hours): Last Vital Signs Temp 37.0 C 12/17/18 07:14 Pulse 55 L 12/17/18 07:14 Resp 18 12/17/18 07:14 BP 116/64 12/17/18 07:14 Pulse Ox 96 12/17/18 07:14 Physical Exam: Dressings clean, dry, intact. Able to independently SLR. Distal pulses 1+, distal sensation and strength normal. No distal edema. Results & Data Laboratory Results 12/17/18 12/17/18 Range/Units 08:28 08:28 WBC 16.17 H (4.8-10.8) K/uL RBC 3.53 L (4.2-5.4) M/uL Hgb 10.4 L (12.0-16.0) g/dL Hct 31.4 L (37-47) % MCV 89.0 (80-100) fL MCH 29.5 (25-34) pg MCHC 33.1 (32-36) g/dL RDW Std Deviation 40.6 (36.4-46.3) fL RDW Coeff of Albert 12.8 (11.5-14.5) % Plt Count 325 (130-400) K/uL MPV 9.4 (7.4-10.4) fL Sodium 134 L (136-145) mmol/L Potassium 4.8 (3.5-5.1) mmol/L Chloride 105 (98-107) mmol/L Carbon Dioxide 22 (21-32) mmol/L Anion Gap 8.0 (3-11) BUN 43 H (7-18) mg/dl Creatinine 1.67 H (0.6-1.2) mg/dl Est Cr Clr Drug Dosing 32.9 ml/min Est GFR ( Amer) 33.9 Est GFR (Non-Af Amer) 29.2 BUN/Creatinine Ratio 25.4 H (10-20) Glucose 101 H (70-99) mg/dl Calcium 8.3 L (8.5-10.1) mg/dl
--- NOTE | 2018-12-17 11:16 | Anesthesiology Progress Note ---
Date of Service December 17, 2018 Anesthesia Post Procedure Vital Signs Vital Signs: Temp Pulse Resp BP Pulse Ox 12/17/18 10:46 36.5 C 64 18 128/70 98 12/17/18 07:14 37.0 C 55 L 18 116/64 96 12/17/18 02:41 36.7 C 66 20 103/61 95 12/16/18 23:09 36.8 C 67 20 96/58 L 97 12/16/18 19:46 36.6 C 68 16 119/69 93 12/16/18 15:30 36.5 C 69 18 115/67 93 12/16/18 14:51 64 17 90 12/16/18 14:47 98/62 L 12/16/18 12:51 63 17 111/69 98 12/16/18 11:47 36.6 C 57 L 16 105/67 100 12/16/18 11:23 17 100/63 97 Notes Mental Status: alert / awake / arousable and participated in evaluation Patient Amnestic to Procedure: Yes Nausea / Vomiting: adequately controlled Pain: adequately controlled Airway Patency, RR, SpO2: stable & adequate BP & HR: stable & adequate Hydration State: stable & adequate Neuraxial Anesthesia: was administered and sensory block resolved Anesthetic Complications: no major complications apparent
[2018-12-17] MEDS: OXYCODONE HCL IR 5 MG TAB (IMMEDIATE RELEASE) PO PRN (15:29)
--- NOTE | 2018-12-17 15:34 | Discharge Summary ---
Date of Service December 17, 2018 Admission HPI Per Admitting Provider Patient is a 78-year-old female who is scheduled to have an elective right total knee arthroplasty on December 16, [address] Brando Chu. Her surgery will be performed at the [facility].She is having right knee pain that has progressively worsened over the last couple of months. She has been having issues with her right knee for the past few years. Most of her pain is on the medial aspect of the knee although she also gets pain in the back of her knee. She has significant stiffness after sitting and sometimes pain that radiates down into her ankle especially with driving. She has pain in the knee at night and also her pain is increased with walking. She is decreasing activities of daily living due to pain in her right knee. Aggravating activities include walking, going up and down steps. She occasionally also has pain at rest. Prior treatments include nonsteroidal anti-inflammatory medications, corticosteroid injections and viscose supplementation. She does use a cane to assist with ambulation to prevent from falling. She does have a history of having a successful left total knee arthroplasty and would like to proceed with a right total knee arthroplasty. Discharge Data Consultations 12/16/18 11:07 Consult Case Management - Discharge Planning Routine Procedures Performed Operation Date: 12/16/18 07:00 Actual Procedures p Right Total Knee Arthroplasty(Right) - Brando Chu MD Hospital Course (1) Degenerative joint disease of knee, right: Patient was admitted to [facility] on December 16, 2018 after under going an elective right total knee arthroplasty. Her surgery was performed with IV sedation, spinal anesthesia with peripheral nerve block. She tolerated the procedure well without any intra-operative complications. Surgery was performed by Dr. Brando Chu. Post-operative x-rays were taken in the PACU and showed a stable prosthesis. Post-operatively she was allowed out of bed, weight bear as tolerated right lower extremity with assistance of a walker and knee immobilizer. She had good quad control on post operative day 1 and her knee immobilizer was then discontinued. She was given a regular diet, which she tolerated well during her inpatient stay. Her pain was well controlled during her stay and she was prescribed oral tylenol, oxycodone, tramadol and IV dila udid. Her vitals were stable postoperatively. Her labs revealed a elevated WBC count which was contributed to steroid dosing pre and post operatively. She was given a Saline bolus on post operative day 1 due to an elevated BUN/Creatinine potentially due to dehydration. PT/OT was consulted, she did well out of bed, and was deemed safe for discharge. She was seen and evaluated by social service s/case managment. She elected to go home with home nursing and physical therapy. Referrals were made. She was deemed safe out of bed and was discharged to her home in stable condition on December 17, 2018. Discharge Instructions New Medicine: * You will likely be taking one or more of these medications: 1. Oxycodone - Take, as directed, when you need it, every four to six hours to control your pain. Take 1 tablet every 4 hours or 1-2 tabs every 4-6 hours 2. Tramadol - Take, as directed, when you need it, every four to six hours to control your pain. 3. Lovenox - Take 30mg twice daily as instructed. You will take this for 2- 4 weeks after surgery. This thins your blood to lessen the chance of forming a blood clot. 4. Senokot/Colace (Senokot-S)- take twice daily, as needed for constipation. You should take while on pain medication. You can get this over the counter. 5. Tylenol - 1-2 tabs oral every 8 hours as needed for pain. You can get this over the counter. "VERY IMPORTANT TO READ AND REVIEW" Blood Clots and Blood Thinning Medicine: * You are given Lovenox during the immediate post-operative period to lessen the risk of blood clots forming in your legs and/or lungs. Lovenox is usually given for 2-4 weeks after surgery. * The prescription is for 30 mg syringes. * You will need to get your blood checked on Saturday following your surgery. You will have a prescription for this when you leave the hospital. If you are having home nursing come to your house, they will take the blood work. Pain: * The immediate post-operative period after knee replacement surgery is often quite painful. * You are given a prescription for pain medicine. You should take it, as directed, when you need it, especially before physical therapy and before going to bed. Pain that interferes with sleep is very common and can last several months. * You will likely need pain medicine for the first four to six weeks. It will not stop all of the pain. The pain will lessen and as you feel better, you may change to milder pain medicine such as Tylenol. * The most common side effects of pain medicine are nausea and constipation, so don't take more than you need. Physical Therapy: * You will have physical therapy two or three times each week for four to six weeks after your surgery in order to regain your knee range of motion and to retrain your knee to work properly. * It is just as important to make sure you are getting your knee perfectly straight as it is to regain your knee bend. * Taking a pain pill an hour before therapy can help you have a more productive and comfortable therapy session if needed. Home Exercise: * You were shown a series of exercises (heel props, heel slides, etc.) in the hospital. Do these exercises three to four times each day including the exercises you were shown in physical therapy. Walking: * Get up and walk several times each day. For the first four weeks, try not to stand or walk for more than one hour at a time. If you do stand or walk for more than one hour, you will not hurt anything, but your knee and leg will likely swell. * As you feel comfortable, you may change from the walker or crutches to a cane and then to independent walking. SELF CARE INSTRUCTIONS AFTER TOTAL KNEE REPLACEMENT A. You may need to continue a physical therapy program after discharge from the hospital. There are several options available to you. Your doctor will assist you in selecting the best one for you. 1. An out-patient facility 2 to 3 times a week for therapy or home therapy. 2. Continue working on all exercises taught to you in the hospital. Your goals should be to increase bending of your knee to 90 degrees and beyond and to fully straighten your knee. B. You may progress at your own pace from walking with a walker or crutches to a cane; then to no assistive devices. C. Make walking a part of your daily routine. Be up as much as comfortable with rest periods throughout the day. Rest with leg elevation is very important. Use the ice wrap frequently for the first 3-4 weeks. D. There are no restrictions on activities. You may ride in a car, shop, participate in salt machine operator and all social activities. E. Wear the long elastic stockings (ELLE hose) 20 hours a day for six weeks after surgery. They can be removed several times a day for laundering and for a shower. F. Do not place a pillow behind your knee when resting. A pillow at your ankle is okay. VERY IMPORTANT TO READ AND REVIEW A. Take Lovenox (blood thinning medications) as directed by your doctor. 1. YOU WILL BE GIVEN AN ORDER AT DISCHARGE FOR CBC (BLOOD WORK). PLEASE HAVE THIS DONE INSTRUCTED. PLEASE CALL OUR OFFICE AFTER YOUR BLOODWORK IS COMPLETE SO WE CAN TRACK YOUR RESULTS. You will get a CBC on Saturday10/20/18 (script provided at discharge). You may get done as an outpatient after your appointment Saturday. IF YOU ARE GOING TO OUTPATIENT PHYSICAL THERAPY, YOU WILL NEED TO GO TO OUTPATIENT TESTING TO HAVE IT DRAWN. B. There are a few signs you need to watch for after you are home. Call [facility] if you notice any of the followin. Increased severe knee pain. Some pain is expected especially when you exercise. 2. Increased swelling in your leg or knee; pain or swelling of the calf muscle in either lower leg. 3. Any fluid drainage from the incision. 4. Shortness of breath or chest pain. C. Please call [facility] at if you have any concerns or questions about your operation or recovery. The doctor or his nurse will return your call promptly. D. You must take antibiotics before dental work, bladder, bowel or other surgery. Call the office to obtain a prescription at least 2 days prior to your appointment. * CALL IF INCREASED PAIN, REDNESS, DRAINAGE OR FEVER GREATER THAT 101. * Sutures should be removed 12-14 days after surgery unless you are on chronic steriods, then it will be 14-18 days after surgery. Call your doctor if: * Temperature above 101 degrees F. * Pain not relieved by pain medicine ordered. * Increased drainage or redness from incision. * Notify your doctor with any questions or concerns. YOU MAY SHOWER STARTING ON SATURDAY, DO NO SCRUB OR SOAK INCISION. PAT INCISION DRY. CHANGE DRESSING ON RIGHT KNEE SATURDAY WITH HOME NURSING, KEEP INCISION COVERED, APPLY ELLE STOCKING ONCE SADE REMOVED DO NOT TOUCH INCISION, IF SOMEONE IS CHANGING DRESSING YOU MUST WASH HANDS AND WEAR GLOVES.
== END 2018-12-17 18:08 | disposition home health service (06) | DRG 470 ==
LOC: ASU 05:00 → 3E 10:01